=== PATIENT | male | born 1990 | race Hispanic/Latino ===

== ENCOUNTER 2020-10-10 11:36 | Inpatient (IN) | payer BC, OTHER ==
[~2020-10-10] VITALS: Ht 167.6 cm; Wt 113.4 kg
[2020-10-10 12:48] LABS: BASOPHILS % 0.2 % (0.0-1.0); HEMATOCRIT 41.8 % (38.2-49.6); HEMOGLOBIN 13.7 g/dL (14.0-18.0); LYMPHOCYTES # (AUTO) 0.9 (1.0-3.2); LYMPHOCYTES % 15.5 % (18.0-39.1); MEAN CORPUSCULAR HEMOGLOBIN 29.1 pg (28-32); MEAN CORPUSCULAR HGB CONC 32.8 g/dL (31-35); MEAN CORPUSCULAR VOLUME 88.7 fL (81-99); MONOCYTES # (AUTO) 0.3 (0.2-0.8); MONOCYTES % 4.2 % (4.4-11.3); NEUTROPHILS # (AUTO) 4.8 (2.1-6.9); NEUTROPHILS % 79.6 % (38.7-80.0); PLATELET COUNT 270 x10e3/uL (140-360); RED BLOOD COUNT 4.71 x10e6/uL (4.3-5.7); RED CELL DISTRIBUTION WIDTH 12.2 % (11.7-14.4)
[2020-10-10 13:00] LABS: ALBUMIN 3.3 g/dL (3.5-5.0); ALBUMIN/GLOBULIN RATIO 0.9 (0.8-2.0); ANION GAP 14.2 mmol/L (8-16); CALCIUM 7.6 mg/dL (8.4-10.2); CREATININE, SERUM 0.8 mg/dL (0.72-1.25); POTASSIUM 4.2 mmol/L (3.5-5.1)
[2020-10-10] MEDS ORDERED: ONDANSETRON HCL INJ 2MG/ML 2ML 2 MG/ML VIAL IV PRN (13:30)
[2020-10-10] MEDS ORDERED: REMDESIVIR 200MG/NS 100ML 200 MG in SODIUM CHLORIDE 0.9% 100 ML 100 ML IV ONE (15:00)
[2020-10-10] MEDS: CEFTRIAXONE 1 GM in SODIUM CHLORIDE 0.9% 50ML 50 ML IV SCH (15:30)
[2020-10-10] MEDS: ASCORBIC ACID 500 MG TAB PO SCH (17:11)
[2020-10-10] MEDS: ENOXAPARIN SOD INJ 40 MG/0.4 ML SYR SC SCH (17:11)
[2020-10-10 18:24] VITALS: BP 107/71
[2020-10-10 18:28] VITALS: BP 107/71
[2020-10-10 20:00] VITALS: BP 104/62
[2020-10-10] MEDS: GUAIFENESIN/CODEINE 10 ML CUP PO PRN (21:00)
[2020-10-10] MEDS: ZOLPIDEM TARTRATE 5 MG TAB PO PRN (21:00)
[2020-10-10] MEDS ORDERED: SODIUM CHLORIDE 0.45% 1,000 ML IV ONE (21:15)
[2020-10-11] VITALS (8 sets, daily range): BP systolic 102–117; BP diastolic 56–81
[2020-10-11 05:42] LABS: BASOPHILS % 0.1 % (0.0-1.0); HEMATOCRIT 40.5 % (38.2-49.6); HEMOGLOBIN 13.4 g/dL (14.0-18.0); LYMPHOCYTES # (AUTO) 1.5 (1.0-3.2); LYMPHOCYTES % 20.1 % (18.0-39.1); MEAN CORPUSCULAR HEMOGLOBIN 29.4 pg (28-32); MEAN CORPUSCULAR HGB CONC 33.1 g/dL (31-35); MEAN CORPUSCULAR VOLUME 88.8 fL (81-99); MONOCYTES # (AUTO) 0.7 (0.2-0.8); MONOCYTES % 9.7 % (4.4-11.3); NEUTROPHILS # (AUTO) 5.2 (2.1-6.9); NEUTROPHILS % 69.8 % (38.7-80.0); PLATELET COUNT 270 x10e3/uL (140-360); RED BLOOD COUNT 4.56 x10e6/uL (4.3-5.7); RED CELL DISTRIBUTION WIDTH 12.3 % (11.7-14.4)
[2020-10-11 06:22] LABS: ALBUMIN/GLOBULIN RATIO 0.8 (0.8-2.0); ANION GAP 13.1 mmol/L (8-16); CREATININE, SERUM 0.72 mg/dL (0.72-1.25); POTASSIUM 4.1 mmol/L (3.5-5.1)
[2020-10-11] MEDS: GUAIFENESIN/CODEINE 10 ML CUP PO PRN (06:30)
[2020-10-11] MEDS: DEXAMETHASONE 4 MG TAB PO SCH (07:56)
[2020-10-11] MEDS: ASCORBIC ACID 500 MG TAB PO SCH ×2 (07:56→16:25)
[2020-10-11] MEDS: ZINC SULFATE 220 MG CAP PO SCH (07:56)
[2020-10-11] MEDS: CEFTRIAXONE 1 GM in SODIUM CHLORIDE 0.9% 50ML 50 ML IV SCH (07:56)
[2020-10-11] MEDS: ACETAMINOPHEN 325 MG TAB PO PRN ×2 (11:47→17:51)
[2020-10-11] MEDS: BENZONATATE 100 MG CAP PO PRN ×2 (14:36→21:42)
[2020-10-11] MEDS: ENOXAPARIN SOD INJ 40 MG/0.4 ML SYR SC SCH (16:25)
[2020-10-11] MEDS ORDERED: REMDESIVIR 100MG/NS 100ML 100 MG in SODIUM CHLORIDE 0.9% 100 ML 100 ML IV SCH (17:00)
[2020-10-11] MEDS ORDERED: REMDESIVIR 200MG/NS 100ML 200 MG in SODIUM CHLORIDE 0.9% 100 ML 100 ML IV ONE (17:00)
[2020-10-11] MEDS: ZOLPIDEM TARTRATE 5 MG TAB PO PRN (21:42)
[2020-10-12] VITALS (7 sets, daily range): BP systolic 97–116; BP diastolic 54–77
[2020-10-12] MEDS: ACETAMINOPHEN 325 MG TAB PO PRN ×2 (00:38→05:59)
[2020-10-12 04:49] LABS: BASOPHILS % 0.2 % (0.0-1.0); HEMATOCRIT 40.3 % (38.2-49.6); HEMOGLOBIN 13.4 g/dL (14.0-18.0); LYMPHOCYTES # (AUTO) 2.1 (1.0-3.2); LYMPHOCYTES % 23.1 % (18.0-39.1); MEAN CORPUSCULAR HEMOGLOBIN 29.2 pg (28-32); MEAN CORPUSCULAR HGB CONC 33.3 g/dL (31-35); MEAN CORPUSCULAR VOLUME 87.8 fL (81-99); MONOCYTES # (AUTO) 0.8 (0.2-0.8); MONOCYTES % 9.2 % (4.4-11.3); NEUTROPHILS % 66.9 % (38.7-80.0); PLATELET COUNT 305 x10e3/uL (140-360); RED BLOOD COUNT 4.59 x10e6/uL (4.3-5.7); RED CELL DISTRIBUTION WIDTH 12.4 % (11.7-14.4)
[2020-10-12 05:11] LABS: ANION GAP 16.9 mmol/L (8-16); CALCIUM 8.3 mg/dL (8.4-10.2); CREATININE, SERUM 0.82 mg/dL (0.72-1.25); POTASSIUM 3.9 mmol/L (3.5-5.1)
[2020-10-12] MEDS: ASCORBIC ACID 500 MG TAB PO SCH ×2 (08:12→16:13)
[2020-10-12] MEDS: CEFTRIAXONE 1 GM in SODIUM CHLORIDE 0.9% 50ML 50 ML IV SCH (08:12)
[2020-10-12] MEDS: DEXAMETHASONE 4 MG TAB PO SCH (08:12)
[2020-10-12] MEDS: BENZONATATE 100 MG CAP PO PRN ×2 (08:12→22:23)
[2020-10-12] MEDS: ZINC SULFATE 220 MG CAP PO SCH (08:12)
[2020-10-12] MEDS: ALBUTEROL SULFATE HFA 8GM INHALATION AEROSOL INH PRN (09:22)
[2020-10-12] MEDS: REMDESIVIR 100MG/NS 100ML 100 MG in SODIUM CHLORIDE 0.9% 100 ML 100 ML IV SCH (14:46)
[2020-10-12] MEDS: ENOXAPARIN SOD INJ 40 MG/0.4 ML SYR SC SCH (16:13)
[2020-10-12] MEDS: ZOLPIDEM TARTRATE 5 MG TAB PO PRN (22:23)
[2020-10-13] VITALS (7 sets, daily range): BP systolic 101–105; BP diastolic 56–72
[2020-10-13] MEDS: ALBUTEROL SULFATE HFA 8GM INHALATION AEROSOL INH PRN (06:56)
[2020-10-13] MEDS: CEFTRIAXONE 1 GM in SODIUM CHLORIDE 0.9% 50ML 50 ML IV SCH (08:20)
[2020-10-13] MEDS: ASCORBIC ACID 500 MG TAB PO SCH ×2 (08:20→17:05)
[2020-10-13] MEDS: DEXAMETHASONE 4 MG TAB PO SCH (08:20)
[2020-10-13] MEDS: ZINC SULFATE 220 MG CAP PO SCH (08:20)
[2020-10-13] MEDS: BENZONATATE 100 MG CAP PO PRN ×2 (08:50→17:32)
[2020-10-13] MEDS: REMDESIVIR 100MG/NS 100ML 100 MG in SODIUM CHLORIDE 0.9% 100 ML 100 ML IV SCH (14:30)
[2020-10-13] MEDS: ENOXAPARIN SOD INJ 40 MG/0.4 ML SYR SC SCH (17:05)
[2020-10-13] MEDS: ZOLPIDEM TARTRATE 5 MG TAB PO PRN (22:18)
[2020-10-14] VITALS (7 sets, daily range): BP systolic 99–111; BP diastolic 59–67
[2020-10-14] MEDS: BENZONATATE 100 MG CAP PO PRN ×3 (08:25→20:45)
[2020-10-14] MEDS: DEXAMETHASONE 4 MG TAB PO SCH (08:26)
[2020-10-14] MEDS: ASCORBIC ACID 500 MG TAB PO SCH ×2 (08:26→16:24)
[2020-10-14] MEDS: ZINC SULFATE 220 MG CAP PO SCH (08:26)
[2020-10-14] MEDS: CEFTRIAXONE 1 GM in SODIUM CHLORIDE 0.9% 50ML 50 ML IV SCH (08:26)
[2020-10-14] MEDS: REMDESIVIR 100MG/NS 100ML 100 MG in SODIUM CHLORIDE 0.9% 100 ML 100 ML IV SCH (13:36)
[2020-10-14] MEDS: ENOXAPARIN SOD INJ 40 MG/0.4 ML SYR SC SCH (16:24)
[2020-10-14] MEDS: ZOLPIDEM TARTRATE 5 MG TAB PO PRN (20:45)
[2020-10-15 01:01] VITALS: BP 105/60
[2020-10-15 05:01] LABS: BASOPHILS % 0.2 % (0.0-1.0); HEMATOCRIT 41.4 % (38.2-49.6); HEMOGLOBIN 13.6 g/dL (14.0-18.0); LYMPHOCYTES # (AUTO) 2.2 (1.0-3.2); LYMPHOCYTES % 25.9 % (18.0-39.1); MEAN CORPUSCULAR HGB CONC 32.9 g/dL (31-35); MEAN CORPUSCULAR VOLUME 88.3 fL (81-99); MONOCYTES # (AUTO) 0.8 (0.2-0.8); MONOCYTES % 9.8 % (4.4-11.3); NEUTROPHILS # (AUTO) 5.3 (2.1-6.9); NEUTROPHILS % 62.5 % (38.7-80.0); PLATELET COUNT 436 x10e3/uL (140-360); RED BLOOD COUNT 4.69 x10e6/uL (4.3-5.7); RED CELL DISTRIBUTION WIDTH 12.3 % (11.7-14.4)
[2020-10-15 05:22] LABS: CALCIUM 8.5 mg/dL (8.4-10.2); CREATININE, SERUM 0.67 mg/dL (0.72-1.25)
[2020-10-15 05:42] VITALS: BP 109/68
[2020-10-15] MEDS: DEXAMETHASONE 4 MG TAB PO SCH (08:47)
[2020-10-15] MEDS: ZINC SULFATE 220 MG CAP PO SCH (08:47)
[2020-10-15] MEDS: CEFTRIAXONE 1 GM in SODIUM CHLORIDE 0.9% 50ML 50 ML IV SCH (08:47)
[2020-10-15] MEDS: ASCORBIC ACID 500 MG TAB PO SCH (08:47)
[2020-10-15 08:51] VITALS: BP 105/66
[2020-10-15 09:59] VITALS: BP 105/66
[2020-10-15 12:42] VITALS: BP 103/63
[2020-10-15] MEDS: REMDESIVIR 100MG/NS 100ML 100 MG in SODIUM CHLORIDE 0.9% 100 ML 100 ML IV SCH (13:41)
[2020-10-15] MEDS ORDERED: DEXAMETHASONE4 MG PO (15:05)
[2020-10-15] MEDS ORDERED: ELIQUIS2.5 MG PO (15:06)
== END 2020-10-15 15:50 | disposition home or self-care (01) | DRG 177 ==
LOC: ER 12:01 → ERHOLD 13:22 → MED/SURG2 18:21
PROVIDERS: ADMIT Internal Medicine; ATTEND Internal Medicine
PROC: 8E0ZXY6 Isolation (ICD-10-PCS; 2020-10-10)
PROC: XW033E5 Introduction of Remdesivir Anti-infective into Peripheral Vein, Percutaneous Approach, New Technology Group 5 (ICD-10-PCS; principal; 2020-10-11)
DX: U07.1 COVID-19 (principal); J12.82 Pneumonia due to coronavirus disease 2019; J96.01 Acute respiratory failure with hypoxia; Z68.41 Body mass index [BMI] 40.0-44.9, adult; E66.01 Morbid (severe) obesity due to excess calories
CPT/HCPCS: 36415; 71045; 80048; 80053; 85025; 87040; 99284; J0456; J0696; J1650; J2405; J7050; U0002